=== PATIENT | male | born 1940 | race Caucasian/White ===

== ENCOUNTER 2016-07-16 11:17 | Emergency (ER) | payer MEDICARE, OTHER ==
[2016-07-16 12:16] LABS: RED BLOOD COUNT 4.71 M/UL (4.20-5.50)
[2016-07-16 12:46] LABS: BUN/CREATININE RATIO 21 (0-10)
== END 2016-07-16 14:45 | disposition home or self-care (01) ==
LOC: ER1 11:17
PROVIDERS: Preventive Medicine Occupational Medicine
DX: I48.2 Chronic atrial fibrillation (principal); I10 Essential (primary) hypertension; Z95.1 Presence of aortocoronary bypass graft
CPT/HCPCS: 36415; 71010; 80053; 81001; 82550; 82553; 83874; 84484; 85025; 85610; 85730; 93005; 96360; 96361; 99285

== ENCOUNTER 2020-04-01 17:03 | Emergency (ER) | payer MEDICARE, OTHER ==
[~2020-04-01 17:03] MED LIST: FLAGYL500 MG PO; ZOFRAN4 MG PO
[2020-04-01 18:40] LABS: HEMOGLOBIN 14.3 gm/dl (14.0-17.5); RED BLOOD COUNT 4.56 M/UL (4.20-5.50); WHITE BLOOD COUNT 9.2 K/UL (4.5-11.0)
[2020-04-01 18:59] LABS: BUN/CREATININE RATIO 17 (0-10)
== END 2020-04-01 22:00 | disposition home or self-care (01) ==
LOC: ER1 17:03
PROVIDERS: Physician Assistant Medical
DX: R07.9 Chest pain, unspecified (principal); I11.0 Hypertensive heart disease with heart failure; I50.9 Heart failure, unspecified; I25.2 Old myocardial infarction; E78.5 Hyperlipidemia, unspecified; Z90.49 Acquired absence of other specified parts of digestive tract; Z79.899 Other long term (current) drug therapy; Z87.891 Personal history of nicotine dependence
CPT/HCPCS: 36415; 71045; 80053; 82550; 82553; 83874; 83880; 84484; 85025; 93005; 99285

== ENCOUNTER → 2020-04-24 | Outpatient (CLI) | payer MEDICARE, OTHER ==
[~2020-04-24] MED LIST changes: +ASPIRIN EC81 MG PO; +ATORVASTATIN CA40 MG PO; +CLINDAMYCIN HC300 MG PO; +COQ-10100 MG PO; +COZAAR50 MG PO; +ELIQUIS5 MG PO; +FISH OIL 1,0001 EAC4 PO; +FLOMAX 0.4 MG0.4 MG PO; +HYDROCHLOROTH12.5 M1 PO; +HYDROCODON-ACE1 EAC4 PO; +ISOSORBIDE MONO30 MG PO; +LEVOFLOXACIN500 MG PO; +NITROSTAT 0.40.4 MG SL; +PROSCAR5 MG PO; +TOPROL XL25 MG PO; +TRAZODONE HCL50 MG PO; +ULTRAM50 MG PO; +XANAX1 MG PO
== END ==
LOC: HEART 5 04-06 08:15
DX: I20.9 Angina pectoris, unspecified (principal); I25.89 Other forms of chronic ischemic heart disease; I51.89 Other ill-defined heart diseases
CPT/HCPCS: 78452; A9502; J2785

== ENCOUNTER → 2020-07-04 | Outpatient (CLI) | payer MEDICARE, OTHER | LOC: EXRD 10:54 | DX: I50.22 Chronic systolic (congestive) heart failure (principal); I27.20 Pulmonary hypertension, unspecified; I25.10 Atherosclerotic heart disease of native coronary artery without angina pectoris; I08.3 Combined rheumatic disorders of mitral, aortic and tricuspid valves; Z95.1 Presence of aortocoronary bypass graft | CPT/HCPCS: 93306 ==

== ENCOUNTER 2020-07-07 07:13 | Outpatient (CLI) | payer MEDICARE, OTHER ==
[~2020-07-07] VITALS: Ht 175.3 cm; Wt 80.3 kg
[~2020-07-07 07:13] MED LIST changes: -ASPIRIN EC81 MG PO; -ATORVASTATIN CA40 MG PO; -CLINDAMYCIN HC300 MG PO; -COQ-10100 MG PO; -COZAAR50 MG PO; -ELIQUIS5 MG PO; -FISH OIL 1,0001 EAC4 PO; -FLOMAX 0.4 MG0.4 MG PO; -HYDROCHLOROTH12.5 M1 PO; -HYDROCODON-ACE1 EAC4 PO; -ISOSORBIDE MONO30 MG PO; -LEVOFLOXACIN500 MG PO; -NITROSTAT 0.40.4 MG SL; -PROSCAR5 MG PO; -TOPROL XL25 MG PO; -TRAZODONE HCL50 MG PO; -ULTRAM50 MG PO; -XANAX1 MG PO
[2020-07-07] MEDS ORDERED: ATORVASTATIN CA40 MG PO (08:10)
[2020-07-07] MEDS ORDERED: XANAX1 MG PO (08:11)
[2020-07-07] MEDS ORDERED: COQ-10100 MG PO (08:12)
[2020-07-07] MEDS ORDERED: ISOSORBIDE MONO30 MG PO (08:12)
[2020-07-07] MEDS ORDERED: FISH OIL 1,0001 EAC4 PO (08:12)
[2020-07-07] MEDS ORDERED: NITROSTAT 0.40.4 MG SL (08:16)
[2020-07-07] MEDS ORDERED: TOPROL XL25 MG PO (08:17)
[2020-07-07] MEDS ORDERED: ASPIRIN EC81 MG PO (08:18)
[2020-07-07] MEDS ORDERED: FLOMAX 0.4 MG0.4 MG PO (08:19)
[2020-07-07] MEDS ORDERED: ELIQUIS5 MG PO (08:20)
[2020-07-07] MEDS ORDERED: COZAAR50 MG PO (08:21)
[2020-07-07] MEDS ORDERED: HYDROCHLOROTH12.5 M1 PO (08:21)
[2020-07-07] MEDS ORDERED: PROSCAR5 MG PO (08:21)
[2020-07-07] MEDS ORDERED: TRAZODONE HCL50 MG PO (08:22)
[2020-07-07] MEDS ORDERED: ULTRAM50 MG PO (08:22)
[2020-07-07] MEDS ORDERED: LEVOFLOXACIN500 MG PO (09:17)
[2020-07-07] MEDS ORDERED: HYDROCODON-ACE1 EAC4 PO (09:17)
[2020-07-07] MEDS ORDERED: CLINDAMYCIN HC300 MG PO (09:17)
== END 2020-07-08 10:45 | disposition home or self-care (01) ==
LOC: CATH 07:13 → PROG CARE 13:31 → CATH 07-08 10:45
DX: Z45.02 Encounter for adjustment and management of automatic implantable cardiac defibrillator (principal); I11.0 Hypertensive heart disease with heart failure; I50.22 Chronic systolic (congestive) heart failure; I25.5 Ischemic cardiomyopathy; I47.2 Ventricular tachycardia; I49.5 Sick sinus syndrome; I48.19 Other persistent atrial fibrillation; Z20.822 Contact with and (suspected) exposure to COVID-19; I25.10 Atherosclerotic heart disease of native coronary artery without angina pectoris; E78.5 Hyperlipidemia, unspecified; Z95.1 Presence of aortocoronary bypass graft; Z87.891 Personal history of nicotine dependence; Z88.8 Allergy status to other drugs, medicaments and biological substances; Z79.01 Long term (current) use of anticoagulants; Z79.82 Long term (current) use of aspirin; Z79.891 Long term (current) use of opiate analgesic; Z79.899 Other long term (current) drug therapy
CPT/HCPCS: 33224; 36415; 71045; 71046; 80048; 85025; 93005; 93641; 93880; 99152; 99153; C1769; C1882; C1900; J1200; J1644; J2250; J3010; J3370; J7040; J7050; J7070; Q9965; U0003

== ENCOUNTER 2020-10-16 13:19 | Emergency (ER) | payer MEDICARE, OTHER ==
[~2020-10-16 13:19] MED LIST changes: +ASPIRIN EC81 MG PO; +ATORVASTATIN CA40 MG PO; +CLINDAMYCIN HC300 MG PO; +COQ-10100 MG PO; +COZAAR50 MG PO; +ELIQUIS5 MG PO; +FISH OIL 1,0001 EAC4 PO; +FLOMAX 0.4 MG0.4 MG PO; +HYDROCHLOROTH12.5 M1 PO; +HYDROCODON-ACE1 EAC4 PO; +ISOSORBIDE MONO30 MG PO; +LEVOFLOXACIN500 MG PO; +NITROSTAT 0.40.4 MG SL; +PROSCAR5 MG PO; +TOPROL XL25 MG PO; +TRAZODONE HCL50 MG PO; +ULTRAM50 MG PO; +XANAX1 MG PO
[2020-10-16 17:05] LABS: HEMOGLOBIN 10.1 gm/dl (14.0-17.5); RED BLOOD COUNT 3.42 M/UL (4.20-5.50); WHITE BLOOD COUNT 15.6 K/UL (4.5-11.0)
[2020-10-16 17:31] LABS: BUN/CREATININE RATIO 69 (0-10)
[2020-10-16 18:22] LABS: HEMOGLOBIN 9.4 gm/dl (14.0-17.5)
== END 2020-10-16 23:38 | disposition short-term general hospital (02) ==
LOC: ER1 13:19
PROVIDERS: Family Medicine
DX: D64.9 Anemia, unspecified (principal); K92.2 Gastrointestinal hemorrhage, unspecified; I25.5 Ischemic cardiomyopathy; Z20.822 Contact with and (suspected) exposure to COVID-19; I48.91 Unspecified atrial fibrillation; Z95.0 Presence of cardiac pacemaker; Z79.01 Long term (current) use of anticoagulants
CPT/HCPCS: 71045; 80053; 82270; 82550; 82553; 83735; 83874; 84484; 85014; 85018; 85025; 85610; 85730; 86850; 86900; 86901; 93005; 96374; 99285; C9113; Q9967; U0002

== ENCOUNTER 2021-03-06 14:45 | Observation (INO) | payer OTHER ==
[~2021-03-06] VITALS: Ht 172.7 cm; Wt 74.8 kg
[~2021-03-06 14:45] MED LIST changes: -HYDROCHLOROTH12.5 M1 PO; +HYDROCHLOROTH12.5 MG PO; +NITROGLYCERIN0.4 MG SL; -NITROSTAT 0.40.4 MG SL
[2021-03-06 15:38] LABS: HEMOGLOBIN 13.6 gm/dl (14.0-17.5); RED BLOOD COUNT 4.64 M/UL (4.20-5.50); WHITE BLOOD COUNT 6.9 K/UL (4.5-11.0)
[2021-03-06 16:05] LABS: BUN/CREATININE RATIO 17 (0-10)
[2021-03-06] MEDS ORDERED: FAMOTIDINE40 MG PO (18:18)
[2021-03-06] MEDS ORDERED: FERROUS SULFAT324 MG PO (18:19)
[2021-03-07 03:16] LABS: HEMOGLOBIN 13.2 gm/dl (14.0-17.5); RED BLOOD COUNT 4.56 M/UL (4.20-5.50); WHITE BLOOD COUNT 7.3 K/UL (4.5-11.0)
[2021-03-07 04:00] LABS: BUN/CREATININE RATIO 17 (0-10)
[2021-03-07] MEDS ORDERED: RANEXA500 MG PO (10:32)
== END 2021-03-07 13:50 | disposition home or self-care (01) ==
LOC: ER1 14:45 → CDU 17:23 → 3 EAST 17:23
PROVIDERS: Nurse Practitioner; Physician Assistant Medical; ADMIT Internal Medicine
DX: R07.89 Other chest pain (principal); Z20.822 Contact with and (suspected) exposure to COVID-19; I13.0 Hypertensive heart and chronic kidney disease with heart failure and stage 1 through stage 4 chronic kidney disease, or unspecified chronic kidney disease; N18.9 Chronic kidney disease, unspecified; I50.22 Chronic systolic (congestive) heart failure; I25.10 Atherosclerotic heart disease of native coronary artery without angina pectoris; F32.A Depression, unspecified; F41.9 Anxiety disorder, unspecified; I48.20 Chronic atrial fibrillation, unspecified; E78.5 Hyperlipidemia, unspecified; Z79.01 Long term (current) use of anticoagulants; Z79.82 Long term (current) use of aspirin; Z79.899 Other long term (current) drug therapy; Z95.810 Presence of automatic (implantable) cardiac defibrillator
CPT/HCPCS: 71045; 80048; 81001; 82550; 82553; 83735; 83874; 84484; 85025; 85027; 85610; 85730; 93005; 99285; G0378; U0002